=== PATIENT | female | born 1935 | race Caucasian/White ===

== ENCOUNTER 2016-11-17 05:35 | Emergency (ER) | payer MEDICARE ==
[2016-11-17] MEDS ORDERED: ALBUTEROL/IPRATROPIUM 2.5/0.5 MG 3 ML/EACH DOSE ONE (06:48)
--- NOTE | 2016-11-17 07:34 | RAD ---
EXAMINATION:CHEST - 2 VIEWS CLINICAL INDICATION: Cough and fever. COMPARISON:none FINDINGS: The cardiomediastinal silhouette is within normal limits. There is no adenopathy identified. There is no pleural effusion. The lungs are clear. The osseous structures are unremarkable for age. IMPRESSION: Senescent changes of the thorax with no acute cardiopulmonary process identified.
== END 2016-11-17 07:39 | disposition home or self-care (01) ==
LOC: ED 05:35
DX: R05 Cough (principal); R06.2 Wheezing